=== PATIENT | male | born 1980 | race Caucasian/White ===

== ENCOUNTER 2020-03-09 20:16 | Emergency (ER) | payer OTHER ==
[~2020-03-09] VITALS: Ht 182.8 cm; Wt 77.1 kg
[2020-03-09 20:21] VITALS: BP 138/74
== END 2020-03-09 23:20 | disposition home or self-care (01) ==
LOC: ED 20:16
DX: G43.909 Migraine, unspecified, not intractable, without status migrainosus (principal)

== ENCOUNTER → 2023-01-18 | Outpatient (CLI) | payer BC | END | disposition home or self-care (01) | LOC: RAD 11:11 | PROVIDERS: ATTEND Chiropractor | DX: M54.6 Pain in thoracic spine (principal); M54.50 Low back pain, unspecified ==

== ENCOUNTER 2024-05-24 12:53 | Emergency (ER) | payer BC ==
[~2024-05-24] VITALS: Ht 172.7 cm; Wt 81.6 kg
[2024-05-24] MEDS ORDERED: Acetaminophen/Oxycodone 5 MG/325 MG TABLET PO ONE (13:00)
[2024-05-24 13:44] VITALS: BP 116/66
[2024-05-24] MEDS ORDERED: IBUPROFEN 800 MG TAB PO ONE (14:35)
[2024-05-24] MEDS ORDERED: Ketorolac Tromethamine 15 MG/ML VIAL IV ONE (14:35)
[2024-05-24] MEDS ORDERED: Metoclopramide Hydrochloride 5 MG TAB PO ONE (14:35)
[2024-05-24] MEDS ORDERED: SODIUM CHLORIDE 0.9% 1,000 ML IV ONE (14:35)
[2024-05-24] MEDS ORDERED: diphenhydrAMINE hydrochloride 50 MG/ML VIAL IV ONE (14:35)
[2024-05-24] MEDS ORDERED: Metoclopramide Hydrochloride 10 MG/2 ML AMP IV ONE (14:35)
[2024-05-24] MEDS ORDERED: IBU800 M2 PO (14:54)
[2024-05-24] MEDS ORDERED: REGLAN10 M1 PO (14:54)
== END 2024-05-24 15:07 | disposition home or self-care (01) ==
LOC: ED 12:53
DX: S06.0X0A Concussion without loss of consciousness, initial encounter (principal); S09.8XXA Other specified injuries of head, initial encounter; Z90.49 Acquired absence of other specified parts of digestive tract; Z98.890 Other specified postprocedural states; W21.11XA Struck by baseball bat, initial encounter; Y93.89 Activity, other specified; Y92.89 Other specified places as the place of occurrence of the external cause; Y99.8 Other external cause status